=== PATIENT | female | born 1975 | race Caucasian/White ===

== ENCOUNTER 2017-05-16 23:51 | Emergency (ER) | payer BC ==
[~2017-05-16] VITALS: Ht 160 cm; Wt 72.8 kg
[2017-05-17] MEDS ORDERED: KETOROLAC 30 MG/1 ML IM ONE (00:30)
[2017-05-17] MEDS ORDERED: DIAZEPAM 5 MG TABLET PO ONE (00:30)
[2017-05-17] MEDS ORDERED: DIAZEPAM 5 MG TABLET ONE (00:44)
[2017-05-17] MEDS ORDERED: KETOROLAC 30 MG/1 ML ONE (00:45)
[2017-05-17 02:52] LABS: HCG UR OBC PASS
[2017-05-17 03:30] VITALS: BP 112/77
== END 2017-05-17 03:30 | disposition home or self-care (01) ==
LOC: ED 23:59
DX: S39.012A Strain of muscle, fascia and tendon of lower back, initial encounter (principal); M46.1 Sacroiliitis, not elsewhere classified; X58.XXXA Exposure to other specified factors, initial encounter; Y93.89 Activity, other specified; Y92.89 Other specified places as the place of occurrence of the external cause; Y99.8 Other external cause status
CPT/HCPCS: 72110; 72220; 81001; 81025; 87086; 96372; 99285; J1885

== ENCOUNTER → 2018-06-16 | Outpatient (CLI) | payer BC | END | disposition home or self-care (01) | LOC: CFH 10:52 | PROVIDERS: ATTEND Obstetrics & Gynecology | DX: Z12.31 Encounter for screening mammogram for malignant neoplasm of breast (principal) | CPT/HCPCS: 77063; 77067 ==

== ENCOUNTER → 2019-10-11 | Outpatient (CLI) | payer BC | END | disposition home or self-care (01) | LOC: CFH 14:13 | PROVIDERS: ATTEND Family Medicine | DX: M54.5 Low back pain (principal) | CPT/HCPCS: 72110 ==